=== PATIENT | female | born 1995 | race African-American/Black ===

== ENCOUNTER 2016-11-23 18:01 | Emergency (ER) | payer MEDICAID ==
[~2016-11-23] VITALS: Ht 172.7 cm; Wt 100.0 kg
[~2016-11-23 18:01] MED LIST: ZOFR4TAB3 SL
[2016-11-23 18:03] VITALS: BP 138/78; PULSE 95; RESP 16; TEMP 98.1; O2SAT 97
[2016-11-23 21:49] VITALS: BP 113/57; PULSE 83; RESP 16; O2SAT 100
[2016-11-23] MEDS ORDERED: birth control (21:50)
[2016-11-23] MEDS ORDERED: ONDANSETRON HCL 4 MG/2 ML VIAL IVP ONE (22:00)
[2016-11-23 22:08] LABS: BLOOD, URINE NEG (NEG); COMMENT (UR) CULT NOT INDICATED; CULTURE IF INDICATED CULT NOT INDICATED; GLUCOSE,URINE NEG (NEG); KETONE, URINE NEG (NEG); MUCUS URINE FEW /lpf (OCC); NITRITE,URINE NEG (NEG); PH, URINE 6.5 (5.0-8.5); SQUAMOUS EPITHELIAL CELL URINE 14 /hpf (0-5); URINE COLOR YELLOW (YELLW/STRAW)
[2016-11-23] MEDS ORDERED: LISINOPRIL 10 MG TAB PO ONE (22:15)
[2016-11-23] MEDS ORDERED: ONDANSETRON ODT 4 MG TAB PO ONE (22:15)
--- NOTE | 2016-11-23 22:22 | PD ---
HPI Chief Complaint: Abdominal Pain Time Seen by Provider: 22:18 Travel History International Travel<30 days: No Contact w/Intl Traveler<30days: No Traveled to known affect area: No History of Present Illness HPI 21-year-old female that presents to the ED for evaluation of lower abdominal pain with nausea and vomiting as well as some diarrhea for the past week. Per patient the pain is mainly on the pelvic region. Per patient is a sharp pain. Per patient he comes and goes. Per patient she's also had some vaginal discharge. She states that she could have an STD but denies . States that she takes control. She does have a history of ovarian cysts. She states that the pain is 6 out of 10. States mainly on the left lower pelvic area. Denies any surgeries. She does tell me that about a month ago she had a miscarriage. Denies any upper abdominal pain. Per patient she has vomited a couple times but nothing recently. No allergies to medication. No bleeding. Nothing seems to make the pain better or worse. Per patient the discharge is smelly and possibly white. Been worsening for the past week. PFSH Past Medical History Fibromyalgia: Yes Medical other: Yes (fibromyalgia) Reproductive: Yes (cysts) Tetanus Vaccination: Unknown Influenza Vaccination: No ?: Not LMP: OCTOBER 2016 Past Surgical History Eye Surgery: Yes Social History Alcohol Use: No Tobacco Use: No Substance Use: No Allergies-Medications (Allergen,Severity, Reaction): Coded Allergies: No Known Allergies (Unverified , 11/23/16) Reported Meds & Prescriptions Reported Meds & Active Scripts Active Zofran Odt (Ondansetron Odt) 4 Mg Tab 4 Mg SL Q6HR PRN Reported [ control] Review of Systems Except as stated in HPI: all other systems reviewed are Neg Physical Exam Narrative GENERAL: SKIN: Warm and dry. HEAD: Atraumatic. Normocephalic. EYES: Pupils equal and round 4 mm reactive to light and accommodation. No scleral icterus. No injection or drainage. ENT: No nasal bleeding or discharge. Mucous membranes pink and moist. Tongue is midline. No uvula deviation. NECK: Trachea midline. No JVD. CARDIOVASCULAR: Regular rate and rhythm. No murmurs, S3, S4. RESPIRATORY: No accessory muscle use. Clear to auscultation. Breath sounds equal bilaterally. GASTROINTESTINAL: Abdomen soft, non-tender, nondistended. Hepatic and splenic margins not palpable. Genital exam: Done with female nurse present. Patient does have malodorous discharge coming from the vagina wall. No obvious lymphadenopathy or mass noted on the labia or the skin. Vaginal exam itself did show some vaginal whitish discharge. No cervical motion tenderness to palpation. No adnexal tenderness. MUSCULOSKELETAL: Extremities without clubbing, cyanosis, or edema. No obvious deformities. Full range of motion of the upper and lower extremities bilaterally. 2+ pulses bilaterally. NEUROLOGICAL: Awake and alert. No obvious cranial nerve deficits. Motor grossly within normal limits. Five out of 5 muscle strength in the arms and legs. Normal speech. PSYCHIATRIC: Appropriate mood and affect; insight and judgment normal. Data Data Last Documented VS Vital Signs Date Time Temp Pulse Resp B/P Pulse Ox O2 Delivery O2 Flow Rate FiO2 11/23/16 21:49 83 16 113/57 100 Room Air 11/23/16 18:03 98.1 Orders Urinalysis - C+S If Indicated (11/23/16 21:40) Ed Urine Pregnancytest Poc (11/23/16 21:40) Complete Blood Count With Diff (11/23/16 21:52) Basic Metabolic Panel (Bmp) (11/23/16 21:52) Gc And Chlamydia Pcr (11/23/16 21:52) Wet Prep Profile (11/23/16 21:52) Iv Access Insert/Monitor (11/23/16 21:52) Ondansetron Inj (Zofran Inj) (11/23/16 22:00) Lisinopril (Prinivil) (11/23/16 22:15) Ondansetron Odt (Zofran Odt) (11/23/16 22:15) Azithromycin Powd Pack (Zithromax Powd P (11/23/16 22:45) Rocephin 250mg Vial Im X 1 (11/23/16 22:45) Lidocaine 1% Inj (50 Ml) (Xylocaine 1% I (11/23/16 22:45) Labs Laboratory Tests Test 11/23/16 11/23/16 21:45 22:15 Urine Color YELLOW Urine Turbidity HAZY Urine pH 6.5 Urine Specific [place] 1.027 Urine Protein TRACE mg/dL Urine Glucose (UA) NEG mg/dL Urine Ketones NEG mg/dL Urine Occult Blood NEG Urine Nitrite NEG Urine Bilirubin NEG Urine Urobilinogen LESS THAN 2.0 MG/DL Urine Leukocyte Esterase NEG Urine WBC 4 /hpf Urine Squamous Epithelial 14 /hpf Cells Urine Mucus FEW /lpf Microscopic Urinalysis Comment CULT NOT INDICATED White Blood Count 11.2 TH/MM3 Red Blood Count 4.02 MIL/MM3 Hemoglobin 11.8 GM/DL Hematocrit 34.8 % Mean Corpuscular Volume 86.5 FL Mean Corpuscular Hemoglobin 29.3 PG Mean Corpuscular Hemoglobin 33.9 % Concent Red Cell Distribution Width 13.8 % Platelet Count 309 TH/MM3 Mean Platelet Volume 9.0 FL Neutrophils (%) (Auto) 62.8 % Lymphocytes (%) (Auto) 22.7 % Monocytes (%) (Auto) 10.4 % Eosinophils (%) (Auto) 3.6 % Basophils (%) (Auto) 0.5 % Neutrophils # (Auto) 7.0 TH/MM3 Lymphocytes # (Auto) 2.5 TH/MM3 Monocytes # (Auto) 1.2 TH/MM3 Eosinophils # (Auto) 0.4 TH/MM3 Basophils # (Auto) 0.1 TH/MM3 CBC Comment DIFF FINAL Differential Comment Clue Cells (Wet Prep) NONE SEEN Vaginal Trichomonas (Wet Prep) NONE SEEN Vaginal Yeast (Wet Prep) NONE SEEN MDM Medical Decision Making Medical Screen Exam Complete: Yes Emergency Medical Condition: Yes Medical Record Reviewed: Yes Interpretation(s) CBC & BMP Diagram 11/23/16 22:15 wet prep negative UA negative Differential Diagnosis Cervicitis versus vaginitis versus PID versus yeast infection versus bacterial vaginosis versus STD versus pelvic pain Narrative Course 21-year-old female that presents to the ED for evaluation of lower abdominal pain with discharge. Patient was properly examined and was found to have signs and symptoms consistent with appears to be vaginitis. Labs ordered. Patient agrees to pelvic exam. Pelvic exam and essentially unremarkable other than for malodorous discharge. Labs were essentially unremarkable other than for slightly elevated bili levels account as well as negative wet prep. At this time I do recommend treating for presumptive vaginitis from possible gonorrhea and chlamydia. Patient was given dose of Rocephin as well as azithromycin here. Patient was told to avoid sex for 2 weeks. She was given prescription for Zofran to use as needed. Recommendations for Motrin for pain. Follow up closely with PCP. See ED for any worsening symptoms. Diagnosis Primary Impression: Vaginitis Qualified Code: N76.0 - Acute vaginitis Patient Instructions: General Instructions Additional Instructions: Take meds as prescribed. Follow with PCP. See ED worsening symptoms. No sex for 2 weeks. Always use protection. Med/Other Pt SpecificInfo: Prescription(s) given Scripts Ondansetron Odt (Zofran Odt)4 Mg Tab4 Mg SL Q6HR PRN (Nausea/Vomiting) #10 TAB Ref 0 Prov:Shai Sanchez MD 11/23/16 Disposition: 01 DISCHARGE HOME Condition: Stable Miguel Potts Nov 23, 2016 22:21
[2016-11-23 22:27] LABS: BASOPHIL # 0.1 TH/MM3 (0-0.2); BASOPHIL % 0.5 % (0.0-2.0); EOSINOPHIL # 0.4 TH/MM3 (0-0.4); EOSINOPHIL % 3.6 % (0.0-4.0); HEMATOCRIT 34.8 % (35.0-46.0); HEMO FLAGS DIFF FINAL; LYMPH % 22.7 % (9.0-44.0); LYMPHOCYTE # 2.5 TH/MM3 (1.0-4.8); MEAN CELL VOLUME 86.5 FL (80.0-100.0); MEAN CORPUSCULAR HEMOGLOBIN 29.3 PG (27.0-34.0); MEAN CORPUSCULAR HGB CONC 33.9 % (32.0-36.0); MONO % 10.4 % (0.0-8.0); NEUT % 62.8 % (16.0-70.0); PLATELET COUNT 309 TH/MM3 (150-450); RED BLOOD COUNT 4.02 MIL/MM3 (4.00-5.30); RED CELL DISTRIBUTION WIDTH 13.8 % (11.6-17.2); WHITE BLOOD COUNT 11.2 TH/MM3 (4.0-11.0)
[2016-11-23] MEDS ORDERED: ZOFR4TAB3 SL (22:45)
[2016-11-23] MEDS ORDERED: AZITHROMYCIN PWD FOR SUSP 1 GM PACKET PO ONE (22:45)
[2016-11-23] MEDS ORDERED: LIDOCAINE HCL 1% 50 ML VIAL IM ONE (22:45)
[2016-11-23] MEDS ORDERED: cefTRIAXone 250 MG VIAL IM ONE (22:45)
[2016-11-23 22:52] LABS: BICARBONATE 20.6 MEQ/L (21.0-32.0); POTASSIUM 4.3 MEQ/L (3.5-5.1)
[2016-11-24 05:32] LABS: CHLAMYDIA PCR NOT DETECTED (NOT DETECT); NEISSERIA PCR NOT DETECTED (NOT DETECT)
== END 2016-11-23 23:00 | disposition home or self-care (01) ==
LOC: NEPE 18:01
DX: N76.0 Acute vaginitis (principal); R11.2 Nausea with vomiting, unspecified; M79.7 Fibromyalgia; Z87.42 Personal history of other diseases of the female genital tract
CPT/HCPCS: 80048; 81001; 84703; 85025; 87210; 87491; 87591; 96372; 99284; J0696

== ENCOUNTER 2017-01-15 02:01 | Emergency (ER) | payer MEDICAID ==
[~2017-01-15] VITALS: Ht 165.1 cm; Wt 107.0 kg
[~2017-01-15 02:01] MED LIST changes: +birth control
[2017-01-15 02:02] VITALS: BP 114/59; PULSE 142; RESP 18; TEMP 100.7; O2SAT 98
[2017-01-15] MEDS ORDERED: PREG25 PO (02:07)
[2017-01-15 02:34] VITALS: PULSE 120; RESP 20; O2SAT 100
[2017-01-15] MEDS ORDERED: ACETAMINOPHEN 325 MG TAB PO ONE (02:45)
[2017-01-15] MEDS ORDERED: SODIUM CHLOR 0.9% 1000 ML INJ 1,000 ML IV ONE (02:45)
[2017-01-15 03:01] LABS: BACTERIA, URINE RARE /hpf; BLOOD, URINE NEG (NEG); GLUCOSE,URINE NEG (NEG); KETONE, URINE TRACE mg/dL (NEG); MUCUS URINE MOD /lpf (OCC); NITRITE,URINE NEG (NEG); PH, URINE 6.5 (5.0-8.5); SQUAMOUS EPITHELIAL CELL URINE 15 /hpf (0-5); URINE COLOR YELLOW (YELLW/STRAW)
[2017-01-15 03:02] LABS: COMMENT (UR) CULT NOT INDICATED; CULTURE IF INDICATED CULT NOT INDICATED
[2017-01-15 03:03] LABS: AUTOMATED NEUTROPHIL # 9.7 TH/MM3 (1.8-7.7); BASOPHIL % 0.3 % (0.0-2.0); EOSINOPHIL # 0.1 TH/MM3 (0-0.4); EOSINOPHIL % 0.7 % (0.0-4.0); HEMATOCRIT 35.4 % (35.0-46.0); LYMPH % 11.9 % (9.0-44.0); LYMPHOCYTE # 1.6 TH/MM3 (1.0-4.8); MEAN CELL VOLUME 85.1 FL (80.0-100.0); MEAN CORPUSCULAR HEMOGLOBIN 27.3 PG (27.0-34.0); MEAN CORPUSCULAR HGB CONC 32.1 % (32.0-36.0); NEUT % 70.1 % (16.0-70.0); PLATELET COUNT 327 TH/MM3 (150-450); RED BLOOD COUNT 4.16 MIL/MM3 (4.00-5.30); RED CELL DISTRIBUTION WIDTH 13.4 % (11.6-17.2); WHITE BLOOD COUNT 13.8 TH/MM3 (4.0-11.0)
[2017-01-15 03:09] LABS: HEMO FLAGS AUTO DIFF
[2017-01-15 03:15] LABS: ALKALINE PHOSPHATASE 45 U/L (45-117); TOTAL BILIRUBIN ADULT 0.2 MG/DL (0.2-1.0)
[2017-01-15 03:16] LABS: ALT (GPT) 15 U/L (9-42); ANION GAP 9 MEQ/L (5-15); AST (GOT) 12 U/L (16-38); BICARBONATE 23.9 MEQ/L (21.0-32.0); BLOOD UREA NITROGEN 10 MG/DL (7-18); CHLORIDE 105 MEQ/L (98-107); GLOMERULAR FILTRATION RATE 85 ML/MIN (>89); POTASSIUM 3.8 MEQ/L (3.5-5.1); SODIUM (NA) 138 MEQ/L (136-145)
[2017-01-15 04:02] LABS: PLATELET ESTIMATE SMEAR NORMAL (NORMAL); PLATELET MORPHOLOGY NORMAL (NORMAL); SCAN/DIFF AUTO DIFF CONFIRMED
[2017-01-15 04:03] LABS: STOMATOCYTES 1+ (NORMAL)
[2017-01-15 04:08] VITALS: RESP 16
--- NOTE | 2017-01-15 04:26 | PD ---
HPI Chief Complaint: Abdominal Pain Time Seen by Provider: 02:39 Travel History International Travel<30 days: No Contact w/Intl Traveler<30days: No Traveled to known affect area: No History of Present Illness HPI The patient is a 21 year old female who presents to the [facility] emergency department with a history of bodyaches that began 3 days ago, followed by a sore throat. The patient reports that she has had lower abdominal discomfort associated with this. She reports that she's had nausea and vomiting 1. She reports that she's had a subjective fever. She reports that she's had an occasional cough. She denies having any diarrhea. The patient on review of systems, denies any neck pain, chest pain, shortness of breath, urinary symptoms, or neurologic symptoms. LMP: 2 weeks ago PFS Past Medical History Narrative Medical The patient's past medical history is significant for ovarian cysts, fibromyalgia. Diminished Hearing: No Fibromyalgia: Yes Reproductive: Yes (cysts) Immunizations Current: Yes Tetanus Vaccination: Unknown Influenza Vaccination: No ?: Not LMP: 2 WEEKS AGO, DID NOT START ON TIME : 1 Miscarriage: 1 Past Surgical History Narrative Surgical The patient's past surgical history is significant for eye surgery, left toe surgery. Eye Surgery: Yes (SX TO FIX DRIFTING) Social History Alcohol Use: No Tobacco Use: No Substance Use: No Allergies-Medications (Allergen,Severity, Reaction): Coded Allergies: No Known Allergies (Unverified , 01/15/17) Reported Meds & Prescriptions Reported Meds & Active Scripts Active Reported Lyrica (Pregabalin) 25 Mg Cap 25 Mg PO BID Review of Systems Except as stated in HPI: all other systems reviewed are Neg General / Constitutional: Positive: Fever, Chills Eyes: No: Visual changes HENT: Positive: Sore Throat, Congestion, No: Headaches Cardiovascular: No: Chest Pain or Discomfort Respiratory: Positive: Cough, No: Shortness of Breath Gastrointestinal: Positive: Nausea, Vomiting, Diarrhea, Loss of Appetite, No: Abdominal Pain, Changes in Bowel Habits, Indigestion Genitourinary: No: Dysuria Musculoskeletal: Positive: Myalgias, No: Pain Skin: No Rash Neurologic: No: Weakness, Focal Abnormalities, Change in Mentation, Slurred Speech, Sensory Disturbance Psychiatric: No: Depression Endocrine: No: Polydipsia Hematologic/Lymphatic: No: Easy Bruising Physical Exam Narrative General: The patient is a well-developed well-nourished female in no acute distress. Head and Neck exam: Head is normocephalic atraumatic. Eyes: EOMI, pupils are equal round and reactive to light. Nose: Midline septum with pink mucous membranes Mouth: Dentition unremarkable. Moist mucus membranes. Posterior oropharynx is mildly erythematous with tonsillar hypertrophy. No exudates. Uvula midline. Airway patent. Neck: No palpable lymphadenopathy. No nuchal rigidity. No thyromegaly. Cardiovascular: Regular rate and rhythm without murmurs, gallops, or rubs. Lungs: Clear to auscultation bilaterally. No wheezes, rhonchi, or rales. Abdomen: Soft, without tenderness to palpation in all 4 quadrants of the abdomen. No guarding, rebound, or rigidity. Normal bowel sounds are audible. No tenderness on palpation of McBurney's point. Negative Lofton's sign. Extremities: No clubbing, cyanosis, or edema. No calf tenderness on palpation. Back: No spinous process tenderness to palpation. No costovertebral angle tenderness to palpation. Neurologic Exam: Grossly nonfocal. Skin Exam: No rash noted. Intact skin that is warm and dry. Data Data Last Documented VS Vital Signs Date Time Temp Pulse Resp B/P Pulse Ox O2 Delivery O2 Flow Rate FiO2 01/15/17 04:08 16 01/15/17 02:34 120 100 01/15/17 02:02 100.7 114/59 Room Air Orders Complete Blood Count With Diff (01/15/17 02:39) Comprehensive Metabolic Panel (01/15/17 02:39) Lipase (01/15/17 02:39) Urinalysis - C+S If Indicated (01/15/17 02:39) Group A Rapid Strep Screen (01/15/17 02:39) Iv Access Insert/Monitor (01/15/17 02:39) Ecg Monitoring (01/15/17 02:39) Oximetry (01/15/17 02:39) Ed Urine Pregnancytest Poc (01/15/17 02:39) Sodium Chlor 0.9% 1000 Ml Inj (Ns 1000 M (01/15/17 02:45) Acetaminophen (Tylenol) (01/15/17 02:45) Strep Culture (Group A) (01/15/17 02:40) Labs Laboratory Tests Test 01/15/17 02:30 White Blood Count 13.8 TH/MM3 Red Blood Count 4.16 MIL/MM3 Hemoglobin 11.4 GM/DL Hematocrit 35.4 % Mean Corpuscular Volume 85.1 FL Mean Corpuscular Hemoglobin 27.3 PG Mean Corpuscular Hemoglobin 32.1 % Concent Red Cell Distribution Width 13.4 % Platelet Count 327 TH/MM3 Mean Platelet Volume 9.2 FL Neutrophils (%) (Auto) 70.1 % Lymphocytes (%) (Auto) 11.9 % Monocytes (%) (Auto) 17.0 % Eosinophils (%) (Auto) 0.7 % Basophils (%) (Auto) 0.3 % Neutrophils # (Auto) 9.7 TH/MM3 Lymphocytes # (Auto) 1.6 TH/MM3 Monocytes # (Auto) 2.3 TH/MM3 Eosinophils # (Auto) 0.1 TH/MM3 Basophils # (Auto) 0.0 TH/MM3 CBC Comment AUTO DIFF Differential Comment AUTO DIFF CONFIRMED Platelet Estimate NORMAL Platelet Morphology Comment NORMAL Stomatocytes 1+ Urine Color YELLOW Urine Turbidity HAZY Urine pH 6.5 Urine Specific [place] 1.031 Urine Protein 30 mg/dL Urine Glucose (UA) NEG mg/dL Urine Ketones TRACE mg/dL Urine Occult Blood NEG Urine Nitrite NEG Urine Bilirubin NEG Urine Urobilinogen 4.0 MG/DL Urine Leukocyte Esterase NEG Urine RBC 2 /hpf Urine WBC 2 /hpf Urine Squamous Epithelial 15 /hpf Cells Urine Bacteria RARE /hpf Urine Mucus MOD /lpf Microscopic Urinalysis Comment CULT NOT INDICATED Sodium Level 138 MEQ/L Potassium Level 3.8 MEQ/L Chloride Level 105 MEQ/L Carbon Dioxide Level 23.9 MEQ/L Anion Gap 9 MEQ/L Blood Urea Nitrogen 10 MG/DL Creatinine 1.01 MG/DL Estimat Glomerular Filtration 85 ML/MIN Rate Random Glucose 105 MG/DL Calcium Level 8.5 MG/DL Total Bilirubin 0.2 MG/DL Aspartate Amino Transf 12 U/L (AST/SGOT) Alanine Aminotransferase 15 U/L (ALT/SGPT) Alkaline Phosphatase 45 U/L Total Protein 7.7 GM/DL Albumin 3.5 GM/DL Lipase 160 U/L [facility] Medical Decision Making Medical Screen Exam Complete: Yes Emergency Medical Condition: Yes Medical Record Reviewed: Yes Differential Diagnosis Viral syndrome, versus strep pharyngitis, versus pancreatitis Narrative Course During the course of the patients emergency department visit, the patients history, examination, and differential diagnosis were reviewed with the patient. The patient had IV access obtained and blood work sent for analysis. The patient was placed on a senior finance manager with oximetry and blood pressure monitoring. A rapid strep test was collected. The patient was provided normal saline 1 L IV fluid bolus, Tylenol 650 by mouth 1. The patients laboratory studies were reviewed and remarkable for a white count of 13.8, hemoglobin 11.4, platelets 327 with 70.1 neutrophils, 17 monocytes suspicious for a viral illness. CMP is remarkable for creatinine 1.01, AST 12, lipase 160, urinalysis shows 30 protein trace ketones for urobilinogen, rare bacteria, culture not indicated. Rapid strep test is negative. The patient's symptoms are most consistent with a viral syndrome. The patient was instructed that viral illnesses do not require treatment with antibiotic. They were working the course by her body producing antibodies to the infection. For nausea the patient was given a prescription for Zofran. She was instructed to take Tylenol as written on the bottle as needed for body aches or fever. The patient is resting comfortably and feels better, is alert and in no distress. The patients results and examination findings were discussed with the patient. The repeat examination is unremarkable and benign. The history, exam, diagnostic testing, and current condition do not suggest any significant pathology to warrant further testing, continued ED treatment, admission, or surgical evaluation at this point. The vital signs have been stable. The patient does not have uncontrollable pain, intractable vomiting, or other significant symptoms. The patient's condition is stable and appropriate for discharge. The patient will pursue further outpatient evaluation with a primary care physician or other designated or consulting physician as indicated in the discharge instructions. The patient expressed understanding and was agreeable with this plan. Diagnosis Primary Impression: Febrile illness Additional Impressions: Pharyngitis Qualified Code: J02.9 - Pharyngitis, unspecified etiology Viral syndrome Referrals: Primary Care Physician 1 week Patient Instructions: General Instructions, Viral Syndrome (ED) Med/Other Pt SpecificInfo: Prescription(s) given Scripts Ondansetron Odt (Zofran Odt)4 Mg Tab4 Mg SL Q6HR PRN (Nausea/Vomiting) #7 TAB Ref 0 Prov:Brandy Browning MD 01/15/17 Disposition: 01 DISCHARGE HOME Condition: Stable Brandy Browning MD Jan 15, 2017 04:26
[2017-01-15] MEDS ORDERED: ZOFR4TAB3 SL (04:33)
== END 2017-01-15 04:49 | disposition home or self-care (01) ==
LOC: NEPC 02:01
DX: B34.9 Viral infection, unspecified (principal); J02.9 Acute pharyngitis, unspecified
CPT/HCPCS: 80053; 81001; 83690; 85025; 87081; 87880; 96360; 99284; J7030

== ENCOUNTER 2017-01-16 16:27 | Emergency (ER) | payer MEDICAID ==
[~2017-01-16 16:27] MED LIST changes: +PREG25 PO; -birth control
[2017-01-16 16:29] VITALS: BP 116/63; PULSE 140; RESP 20; TEMP 102.4; O2SAT 98
== END 2017-01-16 16:40 | disposition left against medical advice (07) ==
LOC: NED 16:27
DX: R68.89 Other general symptoms and signs (principal); Z53.21 Procedure and treatment not carried out due to patient leaving prior to being seen by health care provider
CPT/HCPCS: 99281